=== PATIENT | female | born 1995 | race Caucasian/White ===

== ENCOUNTER 2017-04-24 15:57 | Emergency (ER) | payer OTHER ==
[~2017-04-24] VITALS: Ht 162.6 cm; Wt 56.2 kg
[~2017-04-24 15:57] MED LIST: AMOXICILLIN500 MG PO; CEPHALEXIN500 MG PO; CIPROFLOXACN500 MG PO; DEPO-PROVER150 MG/ML IM; DOXYCYCLINE HY100 MG PO; FLAGYL500 MG PO; KEFLEX500 MG PO; PRE-NATAL PO; PREMARIN0.625 MG PO; PRENATAL1 TA1 PO; PROMETHAZINE25 MG PO; PYRIDIUM200 MG PO; ROBITUSSIN200 MG/10 PO; ROCEPHIN 2250 MG/VIA IM; ZOFRAN ODT4 MG PO
[2017-04-24 17:14] LABS: INFLUENZA A NONE DETECTED (NONE DETECT); INFLUENZA B NONE DETECTED (NONE DETECT)
[2017-04-24] MEDS ORDERED: AFRIN 12 HOUR0.05 % (17:36)
[2017-04-24] MEDS ORDERED: TESSALON PER100 MG PO (17:36)
[2017-04-24] MEDS ORDERED: MOTRIN800 MG PO (17:36)
[2017-04-24 17:40] VITALS: BP 113/67
== END 2017-04-24 17:57 | disposition home or self-care (01) | DRG 866 ==
LOC: ED 15:57
PROVIDERS: Emergency Medicine
DX: B34.9 Viral infection, unspecified (principal); R05 Cough; R50.9 Fever, unspecified

== ENCOUNTER 2020-01-07 07:38 | Day surgery (SDC) | payer BC ==
[~2020-01-07 07:38] MED LIST changes: +AFRIN 12 HOUR0.05 %; +MOTRIN800 MG PO; +TESSALON PER100 MG PO
[2020-01-07] MEDS ORDERED: PERCOCET 5/325M1 TAB PO (10:58)
[2020-01-07 11:34] VITALS: BP 95/51
== END 2020-01-07 12:00 | disposition home or self-care (01) | DRG 349 ==
LOC: ORM 07:38
PROVIDERS: ATTEND Surgery
PROC: 06BY3ZC Excision of Hemorrhoidal Plexus, Percutaneous Approach (ICD-10-PCS; principal; 2020-01-07)
DX: K64.4 Residual hemorrhoidal skin tags (principal); Z20.828 Contact with and (suspected) exposure to other viral communicable diseases
CPT/HCPCS: C9290; J0131; J1100